=== PATIENT | female | born 1955 | race Two or more races ===

== ENCOUNTER 2019-06-09 10:35 | Emergency (ER) | payer OTHER, MEDICAID ==
[~2019-06-09] VITALS: Ht 152.4 cm; Wt 46.3 kg
[2019-06-09 10:45] VITALS: BP 167/81
[2019-06-09] MEDS ORDERED: KETOROLAC TROMETH 60MG/2ML VIAL IM ONE (11:15)
== END 2019-06-09 12:03 | disposition home or self-care (01) ==
LOC: ER 10:39
DX: S16.1XXA Strain of muscle, fascia and tendon at neck level, initial encounter (principal); S29.012A Strain of muscle and tendon of back wall of thorax, initial encounter; I10 Essential (primary) hypertension; V43.52XA Car driver injured in collision with other type car in traffic accident, initial encounter; Y93.89 Activity, other specified; Y99.8 Other external cause status; Y92.410 Unspecified street and highway as the place of occurrence of the external cause
CPT/HCPCS: 72040; 72070; 96372; 99283; J1885